=== PATIENT | male | born 1965 | race Two or more races ===

== ENCOUNTER 2016-11-22 14:01 | Emergency (ER) | payer SELFPAY ==
[~2016-11-22] VITALS: Ht 157.5 cm; Wt 89.0 kg
[~2016-11-22 14:01] MED LIST: D-ME118S6 PO; LEVO500T72 PO
[2016-11-22 14:03] VITALS: Ht 157.5 cm; Wt 89.0 kg
== END 2016-11-22 15:32 | disposition left against medical advice (07) ==
LOC: E/R 14:01
DX: Z53.21 Procedure and treatment not carried out due to patient leaving prior to being seen by health care provider (principal)

== ENCOUNTER 2017-01-01 11:24 | Emergency (ER) | payer OTHER ==
[~2017-01-01] VITALS: Ht 170.2 cm; Wt 94.0 kg
[2017-01-01 11:39] VITALS: Ht 170.2 cm; Wt 94.0 kg
[2017-01-01] MEDS ORDERED: SOD CHLORIDE 0.9% 500 ML IV STA (11:47)
[2017-01-01] MEDS ORDERED: MAGNESIUM CITRATE 300 ML BTL PO ONE (12:00)
[2017-01-01 12:30] LABS: BASOPHILS % 0.2 % (0.0-2.0); EOSINOPHILS # 0.1 10^3/ul (0.0-0.5); EOSINOPHILS % 1.2 % (0.0-7.0); HEMATOCRIT 39.2 % (42.0-52.0); HEMOGLOBIN 13.3 g/dl (14.0-18.0); LYMPHOCYTES # 1.2 10^3/ul (0.8-2.9); LYMPHOCYTES % 10.2 % (15.0-51.0); MEAN CORPUSCULAR HEMOGLOBIN 29.2 pg (29.0-33.0); MEAN CORPUSCULAR HGB CONC 33.9 g/dl (32.0-37.0); MEAN PLATELET VOLUME 10.7 fl (7.4-10.4); MONOCYTE # 1.1 10^3/ul (0.3-0.9); MONOCYTES % 8.9 % (0.0-11.0); NEUTROPHIL # 9.6 10^3/ul (1.6-7.5); NEUTROPHILS % 79.2 % (39.0-77.0); PLATELET COUNT 210 10^3/UL (140-415); RED BLOOD COUNT 4.56 10^6/ul (4.70-6.10); RED CELL DISTRIBUTION WIDTH 13.1 % (11.5-14.5); WHITE BLOOD COUNT 12.1 10^3/ul (4.8-10.8)
[2017-01-01 12:53] LABS: CALCIUM 9.2 mg/dl (8.4-10.2); CREATININE 1.04 mg/dl (0.61-1.24); POTASSIUM 3.8 mmol/L (3.5-5.1)
[2017-01-01 12:58] LABS: ADD UMIC YES; UR ASCORBIC ACID NEGATIVE (NEGATIVE); UR BACTERIA FEW /HPF (NONE SEEN); UR BILIRUBIN (Dip) NEGATIVE (NEGATIVE); UR BLOOD (Dip) 3+ mg/dL (NEGATIVE); UR CLARITY CLEAR (CLEAR); UR COLOR YELLOW (YELLOW); UR GLUCOSE (Dip) NEGATIVE (NEGATIVE); UR KETONES (Dip) NEGATIVE (NEGATIVE); UR LEUKOCYTE ESTERASE (Dip) 2+ Leu/ul (NEGATIVE); UR NITRITE (Dip) NEGATIVE (NEGATIVE); UR RBC > 182 /HPF (0-5); UR SPECIFIC GRAVITY (Dip) 1.013 (1.003-1.030); UR TOTAL PROTEIN (Dip) 2+ mg/dl (NEGATIVE); UR UROBILINOGEN (Dip) NEGATIVE (NEGATIVE)
[2017-01-01] MEDS ORDERED: MAGN296S40 PO (13:04)
--- NOTE | 2017-01-01 13:08 | ERD ---
ER Documentation Chief Complaint Chief Complaint LT FLANK PAIN WITH VOMITING S/P STENT FOR RT KIDNEY STONE HPI This is a 51-year-old male who presents to the emergency room complaining of constipation. He states that he has been dealing with bilateral ureterolithiasis and nephrolithiasis. He most recently less than 1 week ago had bilateral stent placement. The patient still describes intermittent left flank pain radiating to his groin that has been constant, occasionally 8 out of 10 but none currently. The patient did have one episode of nonbloody nonbilious emesis. The main reason he states that he is here is because he feels constipated. He has been taking [place] for pain without significant stool softener. He has a follow-up with his urologist on Tuesday for removal of stent. He completed his course of ciprofloxacin. ROS All systems reviewed and are negative except as per history of present illness. Medications Home Meds Active Scripts Magnesium Citrate* (Magnesium Citrate*) 296 Ml Solution, 296 ML PO ONCE Y for CONSTIPATION, #1 BOTTLE 3 Refills Prov:JARET KRAUSE MD 01/01/17 Dextromethorphan Hb-Promethazine Hcl (Promethazine DM Syrup) 180 Ml Syrup, 5 ML PO Q6H Y for COUGH, #4 OZ Prov:VALERIY PRIETO MD 09/08/15 Levofloxacin* (Levaquin*) 500 Mg Tablet, 500 MG PO DAILY for 7 Days, TAB Prov:VALERIY PRIETO MD 09/08/15 Allergies Allergies: Coded Allergies: No Known Allergy (Unverified , 01/01/17) PMhx/Soc History of Surgery: Yes (KIDNEY STENT) Anesthesia Reaction: No Hx Neurological Disorder: No Hx Respiratory Disorders: No Hx Cardiac Disorders: Yes (HTN) Hx Psychiatric Problems: No Hx Miscellaneous Medical Probl: Yes (BPH) Hx Alcohol Use: No Hx Substance Use: No Hx Tobacco Use: No Smoking Status: Former smoker Physical Exam Vitals Vital Signs Date Time Temp Pulse Resp B/P Pulse Ox O2 Delivery O2 Flow Rate FiO2 01/01/17 11:39 98.2 74 18 131/79 99 Physical Exam General: Well developed, well nourished, no acute distress Head: Normocephalic, atraumatic. Eyes: Pupils equally reactive, EOM intact ENT: Moist mucous membranes Neck: Supple, no lymphadenopathy Respiratory: Lungs clear bilaterally, no distress Cardiovascular: RRR, no murmurs, rubs, or gallops Abdominal: Soft, non-tender, non-distended, no peritoneal signs, normal bowel sounds : Deferred MSK: No edema, no unilateral swelling, 5/5 strength Neurologic: Alert and oriented, moving all extremities, normal speech, no focal weakness, no cerebellar signs Skin: No rash Psych: Normal mood Result Diagram: 01/01/17 1227 01/01/17 1227 Results 24 hrs Laboratory Tests Test 01/01/17 12:20 01/01/17 12:27 Urine Color YELLOW Urine Clarity CLEAR Urine pH 8.0 Urine Specific [place] 1.013 Urine Ketones NEGATIVEmg/dL Urine Nitrite NEGATIVEmg/dL Urine Bilirubin NEGATIVEmg/dL Urine Urobilinogen NEGATIVEmg/dL Urine Leukocyte Esterase 2+Kiley/ul Urine Microscopic RBC > 182/HPF Urine Microscopic WBC 44/HPF Urine Bacteria FEW/HPF Urine Hemoglobin 3+mg/dL Urine Glucose NEGATIVEmg/dL Urine Total Protein 2+mg/dl White Blood Count 12.110^3/ul Red Blood Count 4.5610^6/ul Hemoglobin 13.3g/dl Hematocrit 39.2% Mean Corpuscular Volume 86.0fl Mean Corpuscular Hemoglobin 29.2pg Mean Corpuscular Hemoglobin Concent 33.9g/dl Red Cell Distribution Width 13.1% Platelet Count 95861^3/UL Mean Platelet Volume 10.7fl Neutrophils % 79.2% Lymphocytes % 10.2% Monocytes % 8.9% Eosinophils % 1.2% Basophils % 0.2% Nucleated Red Blood Cells % 0.0/100WBC Neutrophils # 9.610^3/ul Lymphocytes # 1.210^3/ul Monocytes # 1.110^3/ul Eosinophils # 0.110^3/ul Basophils # 0.010^3/ul Nucleated Red Blood Cells # 0.010^3/ul Sodium Level 140mmol/L Potassium Level 3.8mmol/L Chloride Level 101mmol/L Carbon Dioxide Level 27mmol/L Anion Gap 16 Blood Urea Nitrogen 14mg/dl Creatinine 1.04mg/dl Glucose Level 108mg/dl Calcium Level 9.2mg/dl Current Medications Medications (Trade) Dose Ordered Sig/Dulce Route PRN Reason Start Time Stop Time Status Last Admin Dose Admin Sodium Chloride (NS) 500 ml @ 500 mls/hr Q1H STAT IV 01/01/17 11:47 01/01/17 12:46 DC 01/01/17 12:30 Magnesium Citrate (Citroma) 300 ml ONCE ONCE PO 01/01/17 12:00 01/01/17 12:01 DC 01/01/17 12:30 Procedures/MDM LAB INTERPRETATION: Microscopic hematuria but no leukocytosis or renal failure MEDICAL DECISION MAKING: The patient presents to the emergency room complaining of constipation. This is likely secondary to narcotic use secondary to kidney stones and ureteral stones. The patient does have pain on left side but he has known stones and he has a stent. He has good follow-up with urology this week. The patient exhibits no signs or symptoms concerning for infection. He completed his course of ciprofloxacin. He states his main reason is for constipation. He has no clinical signs of bowel obstruction, no abdominal surgical history, he has normal bowel sounds and is passing gas and did have a bowel movement today though was slightly difficult. I do not believe he warrants CT imaging of the abdomen and pelvis. Basic blood work to rule out infectious process or renal insufficiency would be appropriate. ER COURSE: Laboratory testing is reassuring. The patient does have microscopic hematuria. No indication for antibiotics. He has appropriate follow-up with urology. He was given IV fluids. Outpatient magnesium citrate would be reasonable. I kept the patient and/or family informed of laboratory and diagnostic imaging results throughout the emergency room course. DISPOSITION PLAN: We discussed follow up with the patient's primary care doctor within 24 to 48 hours as needed. We also discussed return to the emergency room for worsening symptoms or worsening condition. Outpatient referral: Urology as planned on Tuesday Discharge Medications: Magnesium citrate Departure Diagnosis: Primary Impression: Ureteral calculus, left Additional Impressions: Hematuria Hematuria type: unspecified type Qualified Code: R31.9 - Hematuria, unspecified type Constipation Constipation type: unspecified constipation type Qualified Code: K59.00 - Constipation, unspecified constipation type Condition: Good Patient Instructions: Constipation (Adult) Referrals: COMMUNITY CLINICS YOU HAVE RECEIVED A MEDICAL SCREENING EXAM AND THE RESULTS INDICATE THAT YOU DO NOT HAVE A CONDITION THAT REQUIRES URGENT TREATMENT IN THE EMERGENCY DEPARTMENT. FURTHER EVALUATION AND TREATMENT OF YOUR CONDITION CAN WAIT UNTIL YOU ARE SEEN IN YOUR DOCTORS OFFICE WITHIN THE NEXT 1-2 DAYS. IT IS YOUR RESPONSIBILITY TO MAKE AN APPOINTMENT FOR FOLOW-UP CARE. IF YOU HAVE A PRIMARY DOCTOR --you should call your primary doctor and schedule an appointment IF YOU DO NOT HAVE A PRIMARY DOCTOR YOU CAN CALL OUR PHYSICIAN REFERRAL HOTLINE AT IF YOU CAN NOT AFFORD TO SEE A PHYSICIAN YOU CAN CHOSE FROM THE FOLLOWING [facility] [address] [facility] [address] [facility] [address] [facility] [address] [facility] [address] [facility]. [facility] [address] [facility]. [facility] YOU HAVE RECEIVED A MEDICAL SCREENING EXAM AND THE RESULTS INDICATE THAT YOU DO NOT HAVE A CONDITION THAT REQUIRES URGENT TREATMENT IN THE EMERGENCY DEPARTMENT. FURTHER EVALUATION AND TREATMENT OF YOUR CONDITION CAN WAIT UNTIL YOU ARE SEEN IN YOUR DOCTORS OFFICE WITHIN THE NEXT 1-2 DAYS. IT IS YOUR RESPONSIBILITY TO MAKE AN APPOINTMENT FOR FOLOW-UP CARE. IF YOU HAVE A PRIMARY DOCTOR --you should call your primary doctor and schedule and appointment IF YOU DO NOT HAVE A PRIMARY DOCTOR YOU CAN CALL OUR PHYSICIAN REFERRAL HOTLINE AT . IF YOU CAN NOT AFFORD TO SEE A PHYSICIAN YOU CAN CHOSE FROM THE FOLLOWING [facility] INSTITUTIONS: [facility] [address] [place] [address] [facility] [address] [place] [address] [facility] [place] [address] [place] [address] Additional Instructions: Please follow-up with your urologist on Tuesday as planned. Continue to take pain medications as needed. JARET KRAUSE MD Jan 01, 2017 13:08
[2017-01-01] MEDS ORDERED: TAMS0.4C2 PO (13:14)
[2017-01-01 13:24] VITALS: BP 110/64; PULSE 65; RESP 16; TEMP 98.4
== END 2017-01-01 13:50 | disposition home or self-care (01) ==
LOC: E/R 11:24
DX: N20.1 Calculus of ureter (principal); R31.9 Hematuria, unspecified; I10 Essential (primary) hypertension; Z87.891 Personal history of nicotine dependence
CPT/HCPCS: 36415; 80048; 81001; 85025; J7040; Z7502; Z7610

== ENCOUNTER 2017-01-06 09:01 | Emergency (ER) | payer OTHER ==
[~2017-01-06] VITALS: Wt 92.1 kg
[~2017-01-06 09:01] MED LIST changes: -D-ME118S6 PO; -LEVO500T72 PO; +MAGN296S40 PO; +TAMS0.4C2 PO
[2017-01-06] MEDS ORDERED: SOD CHLORIDE 0.9% 1,000 ML IV STA (09:19)
[2017-01-06] MEDS ORDERED: ONDANSETRON 4 MG INJ IV STA (09:19)
[2017-01-06] MEDS ORDERED: CEFTRIAXONE 1 GM/50 ML (PMX) 50 ML IVPB ONE (09:30)
[2017-01-06] MEDS ORDERED: IBUPROFEN 600 MG TAB PO ONE (09:30)
--- NOTE | 2017-01-06 09:33 | ERD ---
ER Documentation Chief Complaint Chief Complaint FLANK PAIN, KIDNEY STENT TAKEN OUT YESTERDAY HPI 51-year-old man complains of left flank pain 2 days with tactile fevers and chills. He is status post bilateral urinary stent removal and bladder catheter removal yesterday. He was recently diagnosed with bilateral renal and ureteral calculi and urinary stents had to be placed. He states his initial symptoms were right flank pain although a couple days ago he developed suprapubic discomfort and intermittent left flank pain. Patient also has had fevers 2 days. He denies vomiting or diarrhea, no cough, no weight loss, no complaints of chest pain or shortness of breath. He is currently not using antibiotics. ROS All systems reviewed and are negative except as per history of present illness. Medications Home Meds Active Scripts Cephalexin* (Keflex*) 500 Mg Capsule, 500 MG PO TID for 7 Days, CAP Prov:KERRI SHUKLA MD 01/06/17 Ibuprofen* (Ibuprofen*) 600 Mg Tablet, 600 MG PO Q8 for PAIN AND/OR INFLAMMATION , #30 TAB Prov:KERRI SHUKLA MD 01/06/17 Reported Medications Tamsulosin Hcl* (Tamsulosin Hcl*) 0.4 Mg Cap.er.24h, 0.4 MG PO HS, CAP 01/01/17 Discontinued Scripts Magnesium Citrate* (Magnesium Citrate*) 296 Ml Solution, 296 ML PO ONCE Y for CONSTIPATION, #1 BOTTLE 3 Refills Prov:JARET KRAUSE MD 01/01/17 Dextromethorphan Hb-Promethazine Hcl (Promethazine DM Syrup) 180 Ml Syrup, 5 ML PO Q6H Y for COUGH, #4 OZ Prov:VALERIY PRIETO MD 09/08/15 Levofloxacin* (Levaquin*) 500 Mg Tablet, 500 MG PO DAILY for 7 Days, TAB Prov:VALERIY PRIETO MD 09/08/15 Allergies Allergies: Coded Allergies: No Known Allergy (Unverified , 01/06/17) PMhx/Soc Recent bilateral urinary stents and bladder catheter History of Surgery: Yes (KIDNEY STENT) Anesthesia Reaction: No Hx Neurological Disorder: No Hx Respiratory Disorders: No Hx Cardiac Disorders: Yes (HTN) Hx Psychiatric Problems: No Hx Miscellaneous Medical Probl: Yes (BPH) Hx Alcohol Use: No Hx Substance Use: No Hx Tobacco Use: No Smoking Status: Current some day smoker FmHx Family History: No diabetes Physical Exam Vitals Vital Signs Date Time Temp Pulse Resp B/P Pulse Ox O2 Delivery O2 Flow Rate FiO2 01/06/17 12:23 18 98 Room Air 01/06/17 09:02 100.1 88 18 125/69 98 Physical Exam GENERAL: Well-developed, well-nourished, well-hydrated, in no apparent distress , looks nontoxic in appearance HEENT: Moist mucous membranes, pink conjunctiva, no cervical spine tenderness or step-off deformities, no goiter, no jaundice or icterus, extraocular movements intact without pain. No submandibular induration, and no pharyngeal erythema NEURO: Alert and oriented 3, cranial nerves II through XII intact bilaterally, pupils equal round reactive to light, no focal deficits or facial asymmetry, sensation intact distally Strength 5/5 in upper and lower extremities bilaterally CARDIAC: Regular rate and rhythm, no murmurs rubs or gallops LUNGS: Clear bilaterally no wheezing crackles or stridor ABDOMEN: Soft nontender, no guarding, no rigidity, no rebound, no psoas sign no obturator sign. Normoactive bowel sounds SKIN: Warm and dry to touch, no abrasions, contusions, or hematomas, no lacerations, no ecchymosis, no target lesions, and without ulcers EXTREMITIES: No clubbing cyanosis or edema, calves are bilaterally symmetrical, no Homans sign, no popliteal cord sign. Distal pulses equal and bilateral PSYCH: Normal affect without agitation or irritability Result Diagram: 01/06/1792901/06/17 0930 Results 24 hrs Laboratory Tests Test 01/06/17 09:30 01/07/17 14:10 White Blood Count 14.510^3/ul Red Blood Count 4.8810^6/ul Hemoglobin 14.4g/dl Hematocrit 42.9% Mean Corpuscular Volume 87.9fl Mean Corpuscular Hemoglobin 29.5pg Mean Corpuscular Hemoglobin Concent 33.6g/dl Red Cell Distribution Width 13.0% Platelet Count 12312^3/UL Mean Platelet Volume 10.4fl Neutrophils % 79.1% Lymphocytes % 10.6% Monocytes % 8.1% Eosinophils % 1.4% Basophils % 0.3% Nucleated Red Blood Cells % 0.0/100WBC Neutrophils # 11.510^3/ul Lymphocytes # 1.510^3/ul Monocytes # 1.210^3/ul Eosinophils # 0.210^3/ul Basophils # 0.010^3/ul Nucleated Red Blood Cells # 0.010^3/ul Urine Color YELLOW Urine Clarity SLIGHTLY CLOUDY Urine pH 5.0 Urine Specific [place] 1.013 Urine Ketones NEGATIVEmg/dL Urine Nitrite POSITIVEmg/dL Urine Bilirubin NEGATIVEmg/dL Urine Urobilinogen NEGATIVEmg/dL Urine Leukocyte Esterase 1+Kiley/ul Urine Microscopic RBC 20/HPF Urine Microscopic WBC 107/HPF Urine Bacteria FEW/HPF Urine Hemoglobin 2+mg/dL Urine Glucose NEGATIVEmg/dL Urine Total Protein 1+mg/dl Sodium Level 140mmol/L Potassium Level 4.1mmol/L Chloride Level 101mmol/L Carbon Dioxide Level 28mmol/L Anion Gap 15 Blood Urea Nitrogen 9mg/dl Creatinine 1.23mg/dl Glucose Level 105mg/dl Calcium Level 9.5mg/dl Total Bilirubin 0.6mg/dl Direct Bilirubin 0.00mg/dl Indirect Bilirubin 0.6mg/dl Aspartate Amino Transf (AST/SGOT) 20IU/L Alanine Aminotransferase (ALT/SGPT) 52IU/L Alkaline Phosphatase 77IU/L Total Protein 7.8g/dl Albumin 4.6g/dl Globulin 3.20g/dl Albumin/Globulin Ratio 1.43 Lipase 33U/L Lab Scanned Report REFERENCE [id number] Current Medications Medications (Trade) Dose Ordered Sig/Dulce Route PRN Reason Start Time Stop Time Status Last Admin Dose Admin Sodium Chloride (NS) 1,000 ml @ 1,000 mls/hr Q1H STAT IV 01/06/17 09:19 01/06/17 10:22 DC 01/06/17 09:38 Ondansetron HCl 4 mg 4 mg ONCE STAT IV 01/06/17 09:19 01/06/17 09:25 DC 01/06/17 09:38 Ceftriaxone Sodium (Rocephin) 50 ml @ 100 mls/hr ONCE ONCE IVPB 01/06/17 09:30 01/06/17 09:59 DC 01/06/17 09:38 Ibuprofen (Motrin) 600 mg ONCE ONCE PO 01/06/17 09:30 01/06/17 09:31 DC 01/06/17 09:38 Procedures/MDM IV line was established patient was placed on cardiac cath lab manager rhythm strip revealed a sinus rhythm at about 80 bpm with upright P and T waves. Patient was febrile. Urine cultures were obtained results are pending I will follow- up. I do not suspect sepsis. I administered 1 L normal saline intravenously, ibuprofen 600 mg p.o., Zofran 4 mg IV, ceftriaxone 1 g IV for suspected UTI. I revealed a urinalysis performed 2 days ago and it was equivocal I suspect early UTI I treated him in the ED with ceftriaxone CT scan of the abdomen and pelvis was performed:IMPRESSION: Mild right hydronephrosis with mild bilateral hydroureter. 5 mm nonobstructing left lower renal pole nonobstructing stone. No obstructing ureteral stone identified. Inflammatory stranding is noted surrounding the bilateral ureters with air seen within the bladder. The findings may be related to recent instrumentation or bladder/urinary tract infection. Recommend correlation with patient history and urinalysis. Hepatic steatosis. CBC reveals a leukocytosis, electrolytes were normal, liver function tests were normal, urine analysis was positive for infection. Patient has no CVA tenderness, he defervesced, vital signs are normal. Differential diagnoses considered, included but not limited to acute coronary syndrome, pulmonary embolism, aortic dissection, abdominal aortic aneurysm, sepsis, stroke, meningitis, encephalitis, pneumonia, appendicitis, cholecystitis , bowel obstruction, pyelonephritis, nephrolithiasis, cystitis, as well as metabolic, hematologic, and electrolyte abnormalities. As well as abscess, cellulitis, fractures, and dislocations. Patient feels much better at this time, and vital signs are normal, symptoms have improved. I did give strict instructions to return to the ED if symptoms continue or worsen, patient will otherwise follow-up with primary care physician. Patient understood instructions and agreed to plan. Disclaimer: Inadvertent spelling and grammatical errors are likely due to EHR/ dictation software use and do not reflect on the overall quality of patient care. Also, please note that the electronic time recorded on this note does not necessarily reflect the actual time of the patient encounter. Departure Diagnosis: Primary Impression: UTI (urinary tract infection) Urinary tract infection type: acute cystitis Hematuria presence: with hematuria Qualified Code: N30.01 - Acute cystitis with hematuria Additional Impression: Ureterolithiasis Condition: Good KERRI SHUKLA MD Jan 06, 2017 09:33
[2017-01-06 10:01] LABS: BASOPHILS % 0.3 % (0.0-2.0); EOSINOPHILS # 0.2 10^3/ul (0.0-0.5); EOSINOPHILS % 1.4 % (0.0-7.0); HEMATOCRIT 42.9 % (42.0-52.0); HEMOGLOBIN 14.4 g/dl (14.0-18.0); LYMPHOCYTES # 1.5 10^3/ul (0.8-2.9); LYMPHOCYTES % 10.6 % (15.0-51.0); MEAN CORPUSCULAR HEMOGLOBIN 29.5 pg (29.0-33.0); MEAN CORPUSCULAR HGB CONC 33.6 g/dl (32.0-37.0); MEAN CORPUSCULAR VOLUME 87.9 fl (82.0-101.0); MEAN PLATELET VOLUME 10.4 fl (7.4-10.4); MONOCYTE # 1.2 10^3/ul (0.3-0.9); MONOCYTES % 8.1 % (0.0-11.0); NEUTROPHIL # 11.5 10^3/ul (1.6-7.5); NEUTROPHILS % 79.1 % (39.0-77.0); PLATELET COUNT 279 10^3/UL (140-415); RED BLOOD COUNT 4.88 10^6/ul (4.70-6.10); WHITE BLOOD COUNT 14.5 10^3/ul (4.8-10.8)
--- NOTE | 2017-01-06 10:03 | RADRPT ---
PROCEDURE: CT Abdomen and Pelvis without contrast. CLINICAL INDICATION: Abdominal pain TECHNIQUE: CT scan of the abdomen and pelvis was performed on a multidetector high-resolution CT s canner without intravenous contrast. Coronal and sagittal reformatted images were obtained from the axial source images. Images were reviewed on a high-resolution PACS workstation. The total exam CTD I equals 17mGy and the total exam DLP equals 1062mGy-cm. One or more of the following dose reduction techniques were used: Automated exposure control, Adjustment of the mA and/or kV according to patie nt size, and/or use of iterative reconstruction technique. DICOM images are available. COMPARISON: Abdominal CT 12/11/2006 FINDINGS: Evaluation of the solid organs is limited given the lack of intravenous contrast administration. The lung bases are clear. Multiple hepatic cysts are identified which are increased size since 12/11/2006. Additional sub-cent imeter hypodense hepatic structures are seen which are too small to characterize but probably smalle r cysts. No pancreatic ductal dilatation. Spleen and adrenals are unremarkable. Hypoattenuation of t he liver. No focal pericholecystic inflammatory changes. Mild right hydronephrosis with mild bilateral hydroureter. Inflammatory stranding is noted surroundi ng the bilateral ureters. 5 mm nonobstructing left lower renal pole nonobstructing stone. No obstru cting ureteral stone identified. Air is seen within the bladder. Bilateral fat containing inguinal hernias, larger on the left. No bowel obstruction. Normal-caliber appendix. No significant retroperitoneal lymphadenopathy, ascites or evidence of pneumoperitoneum. Promiennt enlargement of the prostate with central calcifications. Osseous structures are grossly unremarkable. IMPRESSION: Mild right hydronephrosis with mild bilateral hydroureter. 5 mm nonobstructing left lower renal pole nonobstructing stone. No obstructing ureteral stone identi fied. Inflammatory stranding is noted surrounding the bilateral ureters with air seen within the bladder. The findings may be related to recent instrumentation or bladder/urinary tract infection. Recommend correlation with patient history and urinalysis. Hepatic steatosis. RPTAT: AA .Emanuel Huffman MD, MD Date Time Electronically viewed and signed by .Emanuel Huffman MD, on 01/06/2017 10:03 .T/
[2017-01-06 10:31] LABS: CALCIUM 9.5 mg/dl (8.4-10.2); CREATININE 1.23 mg/dl (0.61-1.24); POTASSIUM 4.1 mmol/L (3.5-5.1)
[2017-01-06 10:32] LABS: ALBUMIN 4.6 g/dl (3.3-4.9); ALBUMIN/GLOBULIN RATIO 1.43; BILIRUBIN,INDIRECT 0.6 mg/dl (0-1.1); BILIRUBIN,TOTAL 0.6 mg/dl (0.2-1.3); TOTAL PROTEIN 7.8 g/dl (6.1-8.1)
[2017-01-06] MEDS ORDERED: CEPH-443 PO (11:00)
[2017-01-06] MEDS ORDERED: IBUP-1542 PO (11:00)
[2017-01-06 11:22] LABS: ADD UMIC YES; UR ASCORBIC ACID NEGATIVE (NEGATIVE); UR BACTERIA FEW /HPF (NONE SEEN); UR BILIRUBIN (Dip) NEGATIVE (NEGATIVE); UR BLOOD (Dip) 2+ mg/dL (NEGATIVE); UR CLARITY SLIGHTLY CLOUDY (CLEAR); UR COLOR YELLOW (YELLOW); UR GLUCOSE (Dip) NEGATIVE (NEGATIVE); UR KETONES (Dip) NEGATIVE (NEGATIVE); UR LEUKOCYTE ESTERASE (Dip) 1+ Leu/ul (NEGATIVE); UR NITRITE (Dip) POSITIVE (NEGATIVE); UR RBC 20 /HPF (0-5); UR SPECIFIC GRAVITY (Dip) 1.013 (1.003-1.030); UR TOTAL PROTEIN (Dip) 1+ mg/dl (NEGATIVE); UR UROBILINOGEN (Dip) NEGATIVE (NEGATIVE)
[2017-01-06 12:23] VITALS: RESP 18
== END 2017-01-06 12:25 | disposition home or self-care (01) ==
LOC: E/R 09:01
DX: N30.01 Acute cystitis with hematuria (principal); N20.1 Calculus of ureter; I10 Essential (primary) hypertension; F17.210 Nicotine dependence, cigarettes, uncomplicated
CPT/HCPCS: 36415; 74176; 80053; 81001; 83690; 85025; 87086; 96374; 96375; J0696; J2405; J7030; Z7502; Z7610

== ENCOUNTER 2018-10-04 03:10 | Emergency (ER) | payer OTHER ==
[~2018-10-04] VITALS: Ht 162.6 cm; Wt 99.3 kg
[~2018-10-04 03:10] MED LIST changes: +CEPH-443 PO; +IBUP-1542 PO; +IBUP800T48 PO; -MAGN296S40 PO; +OMEP40CA6 PO
[2018-10-04 03:16] VITALS: BP 131/84; PULSE 59; RESP 18; Ht 162.6 cm; Wt 99.3 kg
[2018-10-04] MEDS ORDERED: KETOROLAC 30 MG INJ IM STA (03:36)
[2018-10-04] MEDS ORDERED: CYCLOBENZAPRINE 10 MG TAB PO ONE (04:00)
== END 2018-10-04 04:58 | disposition home or self-care (01) ==
LOC: FTE 03:10
DX: S60.011A Contusion of right thumb without damage to nail, initial encounter (principal); S60.221A Contusion of right hand, initial encounter; I10 Essential (primary) hypertension; F17.210 Nicotine dependence, cigarettes, uncomplicated; X58.XXXA Exposure to other specified factors, initial encounter; Y92.9 Unspecified place or not applicable
CPT/HCPCS: 73130; Z7502; Z7610; J1885